=== PATIENT | male | born 1945 | race Caucasian/White ===

== ENCOUNTER → 2016-08-29 | Outpatient (CLI) | payer MEDICARE ==
--- NOTE | 2016-08-30 16:14 | XR ---
Right ankle HISTORY: Trauma and pain 3 views of the right ankle No comparisons Bone mineralization, joint spaces and alignment are maintained. There is a plantar calcaneal spur. Angela cency present along the proximal fifth metatarsal. Minimal displaced fracture is noted. IMPRESSION: Proximal fifth metatarsal fracture.
--- NOTE | 2016-08-30 16:15 | XR ---
Right foot HISTORY: Trauma and pain 3 views of the right foot Marked degenerative change present at the first metatarsophalangeal joint. Lucency through the proxim al fifth metatarsal is present in a stellate appearance with minimal displacement. No significant ang ulation. No dislocation. IMPRESSION: Proximal fifth metatarsal fracture
== END | disposition home or self-care (01) ==
LOC: RADXRYALE 09:02
PROVIDERS: ATTEND Internal Medicine
DX: S92.351A Displaced fracture of fifth metatarsal bone, right foot, initial encounter for closed fracture (principal); X58.XXXA Exposure to other specified factors, initial encounter

== ENCOUNTER → 2019-04-08 | Outpatient (CLI) | payer MEDICARE | END | disposition home or self-care (01) | LOC: CPPFTMAIN 11:31 | PROVIDERS: ATTEND Internal Medicine Cardiovascular Disease | DX: J44.9 Chronic obstructive pulmonary disease, unspecified (principal) | CPT/HCPCS: 94060; 94726; 94729 ==

== ENCOUNTER → 2019-05-07 | Outpatient (CLI) | payer MEDICARE ==
--- NOTE | 2019-05-07 15:32 | XR ---
EXAMINATION TYPE: XR chest 2V DATE OF EXAM: 05/07/2019 COMPARISON: Prior chest x-ray 12/25/2013 HISTORY: COPD, shortness of breath TECHNIQUE: Frontal and lateral views of the chest are obtained. FINDINGS: Lung volumes are stable, patient is rotated. There is no focal air space opacity, pleural e ffusion, or pneumothorax seen. The cardiac silhouette size is within normal limits. The osseous st ructures are intact. There is overlying artifact. IMPRESSION: No acute cardiopulmonary process.
== END | disposition home or self-care (01) ==
LOC: RADXRYALE 09:57
PROVIDERS: ATTEND Internal Medicine
DX: J44.9 Chronic obstructive pulmonary disease, unspecified (principal)
CPT/HCPCS: 71046

== ENCOUNTER 2019-11-11 02:18 | Observation (INO) | payer MEDICARE ==
[2019-11-11] MEDS ORDERED: SODIUM CHLORIDE 0.9% 500 ML 500 ML IV STA (02:53)
[2019-11-11] MEDS ORDERED: MORPHINE SULFATE 4 MG/ML SYRINGE IV STA (02:53)
[2019-11-11] MEDS ORDERED: ONDANSETRON 4 MG/2 ML VIAL IVP STA (02:53)
--- NOTE | 2019-11-11 02:55 | ED ---
General Adult HPI - General Chief complaint: Abdominal Pain Stated complaint: Abdominal Pain Time Seen by Provider: 11/11/19 02:38 Source: patient Mode of arrival: ambulatory Limitations: no limitations - History of Present Illness Initial comments: Dictation was produced using [employer] dictation software. please excuse any grammatical, word or spelling errors. Chief Complaint: 73-year-old male presents with abdominal pain. History of Present Illness: 73-year-old male who presents with acute abdominal pain. Patient locates the pain to his epigastric region. Patient states that he also feels nauseated. No fever, chills or night sweats. Denies any diarrhea. Patient denies the pain radiating to his back. Patient has no history of the surgery. No constitutional symptoms. Patient states his emesis is nonbilious not bloody. The ROS documented in this emergency department record has been reviewed and confirmed by me. Those systems with pertinent positive or negative responses have been documented in the HPI. All other systems are other negative and/or noncontributory. PHYSICAL EXAM: General Impression: Alert and oriented x3, acute distress secondary to pain HEENT: Normocephalic atraumatic, extra-ocular movements intact, pupils equal and reactive to light bilaterally, mucous membranes moist. Cardiovascular: Heart regular rate and rhythm, S1&S2 audible, no murmurs, rubs or gallops Chest: Lungs clear to auscultation bilaterally, no rhonchi, no wheeze, no rales Abdomen: Nondistended, nonrigid, tenderness to the epigastric area, no right upper quadrant tenderness, no pain at McBurney's point. No left lower quadrant abdominal pain. Musculoskeletal: Pulses present and equal in all extremities, no peripheral e joaquin Motor: no focal deficits noted Neurological: CN II-XII grossly intact, no focal motor or sensory deficits noted Skin: Intact with no visualized rashes Psych: Normal affect and mood ED course: 73-year-old male presents with acute abdominal pain. Vital signs upon arrival are within acceptable limits. Patient denies any lower extremity symptoms. No pulsatile abdominal mass. No concern for abdominal aortic aneurysm. Laboratory evaluation obtained. Mild leukocytosis of 14.2 unclear etiology. Sodium 135, potassium 3.3. Glucose 167. Abdominal labs unremarkable. No elevation in liver enzymes. Urinalysis is negative. CT of the abdomen and pelvis was obtained showing a large gallbladder with 1.7 cm gallstone at the gallbladder neck. Radiology was concerned that findings may suggest acute cholecystitis. Ultrasound of the gallbladder was obtained. Discussed patient case with general surgeon Dr. Hartmann who is willing to accept patients care. Patient started on ceftriaxone and Flagyl. Dr. Hartmann requested patient be nothing by mouth for potential surgical intervention. Patient reevaluated bedside and given more IV analgesia. He is agreeable with disposition. - Related Data Allergies Allergy/AdvReac Type Severity Reaction Status Date / Time Penicillins Allergy Unknown Verified 11/11/19 02:37 Childhood Review of Systems ROS Statement: Those systems with pertinent positive or pertinent negative responses have been documented in the HPI. ROS Other: All systems not noted in ROS Statement are negative. Past Medical History Past Medical History: Cancer, Hyperlipidemia, Hypertension, Prostate Disorder Additional Past Medical History / Comment(s): skin History of Any Multi-Drug Resistant Organisms: None Reported Past Surgical History: Hernia Repair Additional Past Surgical History / Comment(s): skin cancer right cheek Past Psychological History: No Psychological Hx Reported Smoking Status: Never smoker Past Alcohol Use History: Occasional Past Drug Use History: None Reported General Exam Limitations: no limitations Course Vital Signs 11/11/19 11/11/19 02:35 04:55 Temperature 97.4 F L Pulse Rate 80 77 Respiratory 22 16 Rate Blood Pressure 167/89 161/95 O2 Sat by Pulse 98 93 L Oximetry Medical Decision Making - Lab Data Result diagrams: 11/11/19 02:48 11/11/19 02:48 Lab Results 11/11/19 11/11/19 11/11/19 Range/Units 02:48 02:48 02:48 WBC 14.2 H (3.8-10.6) k/uL RBC 5.14 (4.30-5.90) m/uL Hgb 17.1 (13.0-17.5) gm/dL Hct 49.8 (39.0-53.0) % MCV 96.9 (80.0-100.0) fL MCH 33.3 (25.0-35.0) pg MCHC 34.4 (31.0-37.0) g/dL RDW 12.2 (11.5-15.5) % Plt Count 186 (150-450) k/uL Neutrophils % 83 % Lymphocytes % 9 % Monocytes % 6 % Eosinophils % 1 % Basophils % 0 % Neutrophils # 11.8 H (1.3-7.7) k/uL Lymphocytes # 1.2 (1.0-4.8) k/uL Monocytes # 0.8 (0-1.0) k/uL Eosinophils # 0.2 (0-0.7) k/uL Basophils # 0.1 (0-0.2) k/uL Sodium 135 L (137-145) mmol/L Potassium 3.3 L (3.5-5.1) mmol/L Chloride 98 (98-107) mmol/L Carbon Dioxide 25 (22-30) mmol/L Anion Gap 12 mmol/L BUN 13 (9-20) mg/dL Creatinine 1.04 (0.66-1.25) mg/dL Est GFR (CKD-EPI)AfAm 81 (>60 ml/min/1.73 sqM) Est GFR (CKD-EPI)NonAf 70 (>60 ml/min/1.73 sqM) Glucose 167 H (74-99) mg/dL Calcium 10.0 (8.4-10.2) mg/dL Total Bilirubin 1.2 (0.2-1.3) mg/dL AST 39 (17-59) U/L ALT 18 (4-49) U/L Alkaline Phosphatase 108 (38-126) U/L Total Protein 7.7 (6.3-8.2) g/dL Albumin 4.5 (3.5-5.0) g/dL Lipase 174 (23-300) U/L Urine Color Light Yellow Urine Appearance Cloudy (Clear) Urine pH 8.0 (5.0-8.0) Ur Specific [place] 1.012 (1.001-1.035) Urine Protein Negative (Negative) Urine Glucose (UA) Negative (Negative) Urine Ketones 1+ H (Negative) Urine Blood Negative (Negative) Urine Nitrite Negative (Negative) Urine Bilirubin Negative (Negative) Urine Urobilinogen <2.0 (<2.0) mg/dL Ur Leukocyte Esterase Negative (Negative) Urine RBC 5 (0-5) /hpf Urine WBC 4 (0-5) /hpf Ur Squamous Epith Cells <1 (0-4) /hpf Amorphous Sediment Rare H (None) /hpf Urine Bacteria Rare H (None) /hpf Urine Mucus Rare H (None) /hpf Disposition Clinical Impression: Acute cholecystitis Disposition: ADMITTED IP TO THIS HOSP Condition: Fair Referrals: Joselin Paulson MD [Primary Care Provider] - 1-2 days Decision Time: 05:53
[2019-11-11 03:00] LABS: Basophils # (A) 0.1 k/uL (0-0.2); Basophils % (A) 0 %; Eosinophils # (A) 0.2 k/uL (0-0.7); Eosinophils % (A) 1 %; HCT 49.8 % (39.0-53.0); HGB 17.1 gm/dL (13.0-17.5); Lymphocytes # (A) 1.2 k/uL (1.0-4.8); Lymphocytes % (A) 9 %; MCH 33.3 pg (25.0-35.0); MCHC 34.4 g/dL (31.0-37.0); MCV 96.9 fL (80.0-100.0); Mean Platelet Volume 7.1; Monocytes # (A) 0.8 k/uL (0-1.0); Monocytes % (A) 6 %; Neutrophils # (A) 11.8 k/uL (1.3-7.7); Neutrophils % (A) 83 %; Platelet Count 186 k/uL (150-450); RBC 5.14 m/uL (4.30-5.90); RDW 12.2 % (11.5-15.5); WBC 14.2 k/uL (3.8-10.6)
[2019-11-11 03:07] LABS: Amorphous Sediment,Urine Rare /hpf; Appearance,Urine Cloudy (Clear); Bacteria,Urine Rare /hpf; Bilirubin,Urine Negative (Negative); Blood,Urine Negative (Negative); Color,Urine Light Yellow; Glucose,Urine (UA) Negative (Negative); Ketones,Urine 1+ (Negative); Leukocyte Esterase,Urine Negative (Negative); Mucus,Urine Rare /hpf; Nitrite,Urine Negative (Negative); Protein,Urine Negative (Negative); RBC,Urine 5 /hpf (0-5); Specific Gravity,Urine 1.012 (1.001-1.035); Squamous Epithelial Cell,Urine <1 /hpf (0-4); Urobilinogen,Urine <2.0 mg/dL (<2.0); WBC,Urine 4 /hpf (0-5)
[2019-11-11 03:12] LABS: Albumin 4.5 g/dL (3.5-5.0); Potassium 3.3 mmol/L (3.5-5.1); Total Bilirubin 1.2 mg/dL (0.2-1.3); Total Protein 7.7 g/dL (6.3-8.2)
[2019-11-11] MEDS ORDERED: POTASSIUM CHLORIDE ER 20 MEQ TAB.ER PO STA (03:21)
--- NOTE | 2019-11-11 04:19 | CT ---
EXAMINATION TYPE: CT abdomen pelvis w con DATE OF EXAM: 11/11/2019 COMPARISON: None HISTORY: Abd Pain CT DLP: 2119.90 mGycm Automated exposure control for dose reduction was used. CONTRAST: Performed with IV Contrast, patient injected with 100 mL of Isovue 300. Multiple axial sections were obtained from the diaphragm to the floor the pelvis with IV contrast. There is mild subsegmental atelectasis right lung base. Heart size is normal. There is no pericardial effusion. There is no pleural effusion. There are 1.5 cm hypodensity rounded foci in the dependent s tomach that could be ingested medication. Stomach has normal size. Liver shows no focal defect. Gallb ladder is large with a 1.7 cm gallstone at the gallbladder neck. Gallbladder measures 12.2 x 5.1 cm. There is no gallbladder wall thickening. There is no pancreatic mass. Spleen is intact. There is no adrenal mass. Kidneys show satisfactory contrast opacification. There is no hydronephrosi s. There is 4.5 cm cortical cyst lower pole right kidney. There is no retroperitoneal adenopathy. The re are multiple diverticula in the sigmoid colon. I see no sign of diverticulitis. Ureters are not di lated. There is no retroperitoneal adenopathy. Bladder distends smoothly. There is no inguinal hernia . There are bilateral multiple inguinal lymph nodes that measure up to 1.5 cm. There is no free fluid in the pelvis. There is no mesenteric edema. There is no ascites or free air. There is no bowel obstruction. There i s spurring in the thoracic and lumbar spine. There is no compression fracture. Bony pelvis is intact. IMPRESSION: Dilated gallbladder with gallstone in the gallbladder neck. Cystic duct obstruction is suspected. The re is probably acute cholecystitis. Sigmoid diverticulosis without diverticulitis. Mild subsegmental atelectasis right lung base.
[2019-11-11] MEDS ORDERED: cefTRIAXone IN SWFI 1,000 MG/10 ML SYRINGE IVP STA (04:31)
[2019-11-11] MEDS ORDERED: metroNIDAZOLE-NS PMX 500 MG in SALINE 1 100ML.BAG IVPB STA (04:31)
[2019-11-11] MEDS ORDERED: HYDROmorphone 0.5 MG/0.5 ML SYRINGE IVP STA (04:59)
[2019-11-11] MEDS ORDERED: ACETAMINOPHEN TAB 325 MG TAB PO PRN (05:47)
[2019-11-11] MEDS ORDERED: NALOXONE 0.4 MG/ML 1 ML VIAL IV PRN (05:47)
--- NOTE | 2019-11-11 05:57 | US ---
EXAM: US Abdomen Limited, Right Upper Quadrant CLINICAL HISTORY: RUQ pain TECHNIQUE: Real-time ultrasound of the right upper quadrant with image documentation. COMPARISON: No relevant prior studies available. FINDINGS: Liver: Evidence of hepatic steatosis. No intrahepatic bile duct dilation. Gallbladder: 15 mm stone in neck of gallbladder. Very distended gallbladder. No gallbladder wall thickening. Common bile duct: Common bile duct not seen, obscured by gas. Pancreas: Unremarkable as visualized. Right kidney: Unremarkable. No stones. No solid mass. No hydronephrosis. Free fluid: No abnormal fluid. IMPRESSION: Distended gallbladder with stone in neck of gallbladder. No gallbladder wall thickening or abnormal fluid. Hepatic steatosis.
[2019-11-11] MEDS: SODIUM CHLORIDE 0.9% 1,000 ML IV SCH ×3 (08:26→19:54)
[2019-11-11] MEDS: LEVOFLOXACIN 500MG-D5W PMX 500 MG in DEXTROSE/WATER 1 100ML.BAG IVPB SCH (08:26)
--- NOTE | 2019-11-11 09:09 | P.GSHP ---
History of Present Illness H&P Date: 11/11/19 CHIEF COMPLAINT: Abdominal pain HISTORY OF PRESENT ILLNESS: 73-year-old male who presented to the emergency room with a chief complaint of abdominal pain. Patient reports pain is located in epigastric region. He states the pain began last night shortly after eating dinner which he ate eggs and toast. He reports nausea and vomiting overnight but states it has resolved this morning. Denies fever or chills. Denies diarrhea or consultation. PAST MEDICAL HISTORY: See list. PAST SURGICAL HISTORY: See list. SOCIAL HISTORY: No illicit drug use. REVIEW OF SYSTEMS: CONSTITUTIONAL: Denies fever or chills. HEENT: Denies blurred vision, vision changes, or eye pain. Denies hemoptysis CARDIOVASCULAR: Denies chest pain or pressure. RESPIRATORY: No shortness of breath. GASTROINTESTINAL: Refer to HPI for pertinent findings HEMATOLOGIC: Denies bleeding disorders. GENITOURINARY: Denies any blood in urine. SKIN: Denies pruitis. Denies rash. PHYSICAL EXAM: VITAL SIGNS: Reviewed. GENERAL: Well-developed in no acute distress. HEENT: No sclera icterus. Extraocular movements grossly intact. Moist buccal mucosa. Head is atraumatic, normocephalic. ABDOMEN: Soft. Obese. Nondistended. Nontender. NEUROLOGIC: Alert and oriented. Cranial nerves II through XII grossly intact. LABORATORY DATA: WBC 14.2. Hemoglobin 17.1. Platelet count 186. IMAGING: -Gallbladder ultrasound: Distended gallbladder with stone in the neck of the gallbladder. No gallbladder wall thickening or abnormal fluid. -CT abdomen and pelvis: Dilated gallbladder with gallstone in the gallbladder neck. Cystic duct obstruction is suspected. There is probably acute cholecystitis. ASSESSMENT: 1. Abdominal pain 2. Acute cholecystitis 3. Cholelithiasis PLAN: NPO. IV fluids. IV antibiotics. Monitor WBC. Consult Dr. Ospina for medical man agement. Patient to undergo laparoscopic cholecystectomy today with Dr. Hartmann Nurse practitioner note has been reviewed by physician. Signing provider agrees with the documented findings, assessment, and plan of care. Past Medical History Past Medical History: Cancer, Hyperlipidemia, Hypertension, Prostate Disorder Additional Past Medical History / Comment(s): skin History of Any Multi-Drug Resistant Organisms: None Reported Past Surgical History: Hernia Repair Additional Past Surgical History / Comment(s): skin cancer right cheek Past Psychological History: No Psychological Hx Reported Smoking Status: Never smoker Past Alcohol Use History: Occasional Past Drug Use History: None Reported Medications and Allergies Allergies Allergy/AdvReac Type Severity Reaction Status Date / Time Penicillins Allergy Unknown Verified 11/11/19 02:37 Childhood Surgical - Exam Vital Signs Temp Pulse Resp BP Pulse Ox 97.4 F L 80 22 167/89 98 11/11/19 02:35 11/11/19 02:35 11/11/19 02:35 11/11/19 02:35 11/11/19 02:35 Results - Labs 11/11/19 02:48 11/11/19 02:48 Abnormal Lab Results - Last 24 Hours (Table) 11/11/19 11/11/19 11/11/19 Range/Units 02:48 02:48 02:48 WBC 14.2 H (3.8-10.6) k/uL Neutrophils # 11.8 H (1.3-7.7) k/uL Sodium 135 L (137-145) mmol/L Potassium 3.3 L (3.5-5.1) mmol/L Glucose 167 H (74-99) mg/dL Urine Ketones 1+ H (Negative) Amorphous Sediment Rare H (None) /hpf Urine Bacteria Rare H (None) /hpf Urine Mucus Rare H (None) /hpf Diabetes panel 11/11/19 Range/Units 02:48 Sodium 135 L (137-145) mmol/L Potassium 3.3 L (3.5-5.1) mmol/L Chloride 98 (98-107) mmol/L Carbon Dioxide 25 (22-30) mmol/L BUN 13 (9-20) mg/dL Creatinine 1.04 (0.66-1.25) mg/dL Glucose 167 H (74-99) mg/dL Calcium 10.0 (8.4-10.2) mg/dL AST 39 (17-59) U/L ALT 18 (4-49) U/L Alkaline Phosphatase 108 (38-126) U/L Total Protein 7.7 (6.3-8.2) g/dL Albumin 4.5 (3.5-5.0) g/dL Calcium panel 11/11/19 Range/Units 02:48 Calcium 10.0 (8.4-10.2) mg/dL Albumin 4.5 (3.5-5.0) g/dL Pituitary panel 11/11/19 Range/Units 02:48 Sodium 135 L (137-145) mmol/L Potassium 3.3 L (3.5-5.1) mmol/L Chloride 98 (98-107) mmol/L Carbon Dioxide 25 (22-30) mmol/L BUN 13 (9-20) mg/dL Creatinine 1.04 (0.66-1.25) mg/dL Glucose 167 H (74-99) mg/dL Calcium 10.0 (8.4-10.2) mg/dL Adrenal panel 11/11/19 Range/Units 02:48 Sodium 135 L (137-145) mmol/L Potassium 3.3 L (3.5-5.1) mmol/L Chloride 98 (98-107) mmol/L Carbon Dioxide 25 (22-30) mmol/L BUN 13 (9-20) mg/dL Creatinine 1.04 (0.66-1.25) mg/dL Glucose 167 H (74-99) mg/dL Calcium 10.0 (8.4-10.2) mg/dL Total Bilirubin 1.2 (0.2-1.3) mg/dL AST 39 (17-59) U/L ALT 18 (4-49) U/L Alkaline Phosphatase 108 (38-126) U/L Total Protein 7.7 (6.3-8.2) g/dL Albumin 4.5 (3.5-5.0) g/dL
[2019-11-11] MEDS: PANTOPRAZOLE 40 MG/10 ML VIAL IVP SCH (09:32)
[2019-11-11] MEDS: HYDROmorphone 0.5 MG/0.5 ML SYRINGE IVP PRN ×3 (12:40→20:24)
[2019-11-11] MEDS: HEPARIN SODIUM,PORCINE 5,000 UNIT/ML 1 ML VIAL SQ SCH ×2 (13:33→19:44)
[2019-11-11 19:49] LABS: Glucose,Whole Blood 182 mg/dL (75-99)
[2019-11-12] MEDS: HYDROmorphone 0.5 MG/0.5 ML SYRINGE IVP PRN ×4 (00:39→18:55)
[2019-11-12] MEDS: SODIUM CHLORIDE 0.9% 1,000 ML IV SCH ×2 (00:41→14:38)
[2019-11-12] MEDS ORDERED: IPRATROPIUM-ALBUTEROL 3 ML NEB INHALATION PRN (00:49)
--- NOTE | 2019-11-12 00:51 | P.CONS ---
History of Present Illness - Reason for Consult Consult date: 11/11/19 Medical management - Chief Complaint Abdominal pain - History of Present Illness Patient is a 73-year-old male with a known history of COPD, hypertension, hyperlipidemia, GERD, history of skin cancers removed, BPH and nephrolithiasis and also chronic low back pain presents to ER with complaints of abdominal pain mainly in the epigastric and right upper quadrant region. Pain started last night and has been having nausea and episodes of vomiting at home. Due to worsening pain patient presents to ER. Denied any fever or chills. breasts of chest pain or shortness of breath. no headache or dizziness or lightheadedness. denied any unusual food intake. ct of the abdominal pelvis showed dilated gallbladder and gallstone in the gallbladder neck. there is probable acute cystitis. ABDOMEN SHOWED DISTENDED GALLBLADDER WITH STONE IN THE NECK OF THE GALLBLADDER. NO GALLBLADDER WALL THICKENING OR ABNORMAL FLUID. WBC 14.2. Potassium 3.3. Review of Systems Constitutional: Patient denies any fever or chills . No generalized weakness or weight loss. Abdomen: Patient did have nausea and vomiting.. Abdominal pain. Cardiovascular: Patient denies any chest pain or short of breath no palpitations. Respiratory: patient denied any cough is from production. No shortness of breath Neurologic: Patient denied any numbness or tingling headache. Musculoskeletal: Patient denies any complaints of joint swelling or deformity. Skin: Negative Psychiatric: Negative Endocrine: No heat or cold intolerance. No recent weight gain. Genitourinary: No dysuria or hematuria. All other 14 point ROS negative except the above Past Medical History Past Medical History: Cancer, COPD, GERD/Reflux, Hyperlipidemia, Hypertension, Prostate Disorder, Renal Disease Additional Past Medical History / Comment(s): Skin cancer removed from R cheek recently, BPH, nephritis, nephrolithiasis, chronic low back pain, gastric ulcer when in his 20s, L ear cerumen build up. History of Any Multi-Drug Resistant Organisms: None Reported Past Surgical History: Heart Catheterization, Hernia Repair Additional Past Surgical History / Comment(s): skin cancer removal right cheek, bilateral inguinal hernia repairs, colonoscopy, Past Anesthesia/Blood Transfusion Reactions: No Reported Reaction Smoking Status: Former smoker - Past Family History Father Family Medical History: Coronary Artery Disease (CAD) Additional Family Medical History / Comment(s): Father had CABG at the age of 68yrs. Mother Family Medical History: Congestive Heart Failure (CHF), CVA/TIA Medications and Allergies Home Medications Medication Instructions Recorded Confirmed Type Albuterol Sulfate [Ventolin HFA] 2 puff INHALATION RT-Q6H PRN 11/11/19 11/11/19 History Aspirin 81 mg PO DAILY 11/11/19 11/11/19 History Budesonide-Formot 160-4.5 Mcg 2 puff INHALATION RT-BID 11/11/19 11/11/19 History [Symbicort 160-4.5 Mcg Inhaler] Lisinopril [Zestril] 10 mg PO HS 11/11/19 11/11/19 History Lisinopril-Hctz 20-25 mg 1 tab PO DAILY 11/11/19 11/11/19 History [Zestoretic 20-25] Metoprolol Tartrate [Lopressor] 25 mg PO BID 11/11/19 11/11/19 History Simvastatin [Zocor] 40 mg PO HS 11/11/19 11/11/19 History Tamsulosin HCl [Flomax] 0.4 mg PO DAILY 11/11/19 11/11/19 History Allergies Allergy/AdvReac Type Severity Reaction Status Date / Time Penicillins Allergy Unknown Verified 11/11/19 09:20 Childhood Physical Exam Vitals: Vital Signs Temp Pulse Resp BP Pulse Ox 11/11/19 08:01 98.6 F 85 17 142/90 98 11/11/19 04:55 77 16 161/95 93 L 11/11/19 02:35 97.4 F L 80 22 167/89 98 Intake and Output 11/10/19 11/11/19 11/11/19 22:59 06:59 14:59 Other: Weight 115.666 kg 115.666 kg PHYSICAL EXAMINATION: Patient is lying in the bed comfortably, no acute distress, awake alert and oriented.. HEENT: Normocephalic. Neck is supple. Pupils reactive. Nostrils clear. Oral cavity is moist. Ears reveal no drainage. Neck reveals no JVD, carotid bruits, or thyromegaly. CHEST EXAMINATION: Trachea is central. Symmetrical expansion. Lung interiano clear to auscultation and percussion. CARDIAC: Normal S1, S2 with no gallops. No murmurs ABDOMEN: Soft. Right upper quadrant tenderness. Bowel sounds normal. No organomegaly. No abdominal bruits. Extremities: reveal no edema. No clubbing or cyanosis Neurologically awake, alert, oriented x3 with well-coordinated movements. No focal deficits noted Skin: No rash or skin lesions. Psychiatric: Coperative. Nonsuicidal Musculoskeletal: No joint swelling or deformity. Normal range of motion. Results CBC & Chem 7: 11/11/19 02:48 11/11/19 02:48 Labs: Abnormal Lab Results - Last 24 Hours (Table) 11/11/19 11/11/19 11/11/19 Range/Units 02:48 02:48 02:48 WBC 14.2 H (3.8-10.6) k/uL Neutrophils # 11.8 H (1.3-7.7) k/uL Sodium 135 L (137-145) mmol/L Potassium 3.3 L (3.5-5.1) mmol/L Glucose 167 H (74-99) mg/dL Urine Ketones 1+ H (Negative) Amorphous Sediment Rare H (None) /hpf Urine Bacteria Rare H (None) /hpf Urine Mucus Rare H (None) /hpf Assessment and Plan Assessment: Acute cholecystitis with the gallstone and the neck of the gallbladder. Mild leukocytosis Hypertension uncontrolled Hyperlipidemia COPD not in exacerbation GERD BPH History of nephrolithiasis Chronic back pain History of skin cancer removal. DVT prophylaxis with heparin subcu Previous history of smoking Plan: Patient will be continued on IV hydration and pain medications and empiric antibiotics. Patient was given a dose of ceftriaxone and Flagyl in the ER. Continue with current empiric antibiotics. Gen. surgery is planning for cholecystectomy tomorrow. Patient does not have any active symptoms of chest pain or shortness breath. Continue with duo nebs and Symbicort. Continue with home blood pressure medications in the form of lisinopril and metoprolol. We will follow up labs tomorrow. Patient is at low risk for abdominal surgery. We will continue to follow closely and further recommendations based on the clinical course. Time with Patient: Greater than 30
[2019-11-12] MEDS: LISINOPRIL 10 MG TAB PO SCH ×2 (01:07→20:25)
[2019-11-12 08:04] LABS: Basophils % (A) 0 %; Eosinophils # (A) 0.1 k/uL (0-0.7); Eosinophils % (A) 0 %; HGB 15.8 gm/dL (13.0-17.5); Lymphocytes # (A) 1.2 k/uL (1.0-4.8); Lymphocytes % (A) 6 %; MCH 33.5 pg (25.0-35.0); MCHC 33.7 g/dL (31.0-37.0); MCV 99.5 fL (80.0-100.0); Monocytes # (A) 1.3 k/uL (0-1.0); Monocytes % (A) 7 %; Neutrophils # (A) 15.8 k/uL (1.3-7.7); Neutrophils % (A) 85 %; Platelet Count 147 k/uL (150-450); RBC 4.72 m/uL (4.30-5.90); RDW 12.4 % (11.5-15.5); WBC 18.7 k/uL (3.8-10.6)
[2019-11-12] MEDS: HEPARIN SODIUM,PORCINE 5,000 UNIT/ML 1 ML VIAL SQ SCH ×3 (08:14→20:24)
[2019-11-12 08:24] LABS: ALT 13 U/L (4-49); AST 26 U/L (17-59); African American GFR (CKD) >90 (>60 ml/min/1.73 sqM); Albumin 3.4 g/dL (3.5-5.0); Alkaline Phosphatase 70 U/L (38-126); Anion Gap 7 mmol/L; Blood Urea Nitrogen 9 mg/dL (9-20); Calcium 8.6 mg/dL (8.4-10.2); Carbon Dioxide 27 mmol/L (22-30); Chloride 100 mmol/L (98-107); Glucose 125 mg/dL (74-99); Non-African American GFR(CKD) 79 (>60 ml/min/1.73 sqM); Potassium 3.8 mmol/L (3.5-5.1); Sodium 134 mmol/L (137-145); Total Bilirubin 1.4 mg/dL (0.2-1.3); Total Protein 6.4 g/dL (6.3-8.2)
[2019-11-12] MEDS: METOPROLOL TARTRATE 25 MG TAB PO SCH ×2 (08:25→20:25)
[2019-11-12] MEDS: PANTOPRAZOLE 40 MG/10 ML VIAL IVP SCH (08:25)
[2019-11-12] MEDS ORDERED: IV FLUID CONTINUATION 100 ML IV ONE (08:57)
[2019-11-12] MEDS ORDERED: fentaNYL (PF) 50 MCG/ML 2 ML AMP IV ONE ×2 (09:10→09:25)
[2019-11-12] MEDS: ONDANSETRON 4 MG/2 ML VIAL IVP PRN ×3 (09:13→12:09)
[2019-11-12] MEDS ORDERED: DEXAMETHASONE SOD PHOSPHATE 10 MG/ML 1 ML VIAL IV ONE (09:15)
[2019-11-12] MEDS ORDERED: LACTATED RINGERS 1,000 ML IV ONE (09:22)
[2019-11-12] MEDS: SYMBICORT 160-4.5 MCG INHALER INHALATION SCH ×2 (09:22→21:37)
[2019-11-12] MEDS: LEVOFLOXACIN 500MG-D5W PMX 500 MG in DEXTROSE/WATER 1 100ML.BAG IVPB SCH (09:57)
[2019-11-12] MEDS: TAMSULOSIN 0.4 MG CAP.ER.24H PO SCH (10:04)
[2019-11-12] MEDS ORDERED: LABETALOL 5 MG/ML VIAL MDV ONE (10:57)
[2019-11-12] MEDS ORDERED: KETOROLAC 30 MG/ML 1 ML VIAL ONE (10:57)
[2019-11-12] MEDS ORDERED: SUCCINYLCHOLINE CHLORIDE 100 MG/5 ML SYR IV ONE (10:57)
[2019-11-12] MEDS ORDERED: GLYCOPYRROLATE 0.2 MG/ML 2 ML VIAL ONE (10:57)
[2019-11-12] MEDS ORDERED: fentaNYL (PF) 50 MCG/ML 2 ML AMP ONE (10:57)
[2019-11-12] MEDS ORDERED: NEOSTIGMINE 1 MG/ML 10 ML VIAL ONE (10:57)
[2019-11-12] MEDS ORDERED: LIDOCAINE 1% INJ 10MG/ML (20 ML MDV) ONE (10:57)
[2019-11-12] MEDS ORDERED: PROPOFOL 10 MG/ML 20 ML VIAL IV ONE (10:57)
[2019-11-12] MEDS ORDERED: ROCURONIUM BROMIDE 10 MG/ML 5 ML VIAL IV ONE (10:57)
[2019-11-12] MEDS ORDERED: BUPIVACAIN-EPI 0.25%-1:200,000 30 ML VIAL SQ ONE (11:16)
--- NOTE | 2019-11-12 11:42 | P.OP ---
Date of Procedure: 11/12/19 Preoperative Diagnosis: Cholecystitis Postoperative Diagnosis: Gangrenous cholecystitis Procedure(s) Performed: Laparoscopic cholecystectomy Anesthesia: RETA Surgeon: Magdaleno Hartmann Estimated Blood Loss (ml): 10 Pathology: other (Gallbladder) Condition: stable Disposition: PACU Description of Procedure: The patient was placed on the operating table. The patient received a general endotracheal tube anesthesia. The patients abdomen was prepped and draped in the usual sterile fashion. Through an infraumbilical stab incision, the fascia of the anterior abdominal wall was grasped with a pair of Kochers and then the Veress needle was placed in the peritoneal cavity. Position of the Veress needle was confirmed with positive drop test. The abdomen was then insufflated. After adequate insufflation, the 10 mm trocar was placed in the peritoneal cavity. Following this the laparoscope was placed in the peritoneal cavity. The patient was placed in the head-up, right side up position and then a 5 mm trocar was placed in the right lateral and right subcostal position under direct visualization. A 8 mm trocar was placed in the epigastric position. The gallbladder appeared to have patchy necrosis. The gallbladder was grasped in the fundus and infundibulum. Traction on the gallbladder was placed in the lateral and the cephalad positions. The triangle of [place] was visualized.. The cystic duct was bluntly dissected until the union of the cystic duct and common bile duct was seen. A critical view of safety was achieved. The cystic duct was then divided and sealed with the Harmonic scissors. A PDS Endoloop was then placed throughout the cystic duct stump. The cystic artery divided and sealed with the Harmonic scissors. The gallbladder was then removed from the liver bed using Harmonic scissors. The gallbladder was then extracted through the epigastric port site. Operative field was checked for any bleeding spots and Harmonic scissors was used to coagulate the liver bed. The abdomen was irrigated. The trocars were medhat hilda. The skin was closed using interrupted 3-0 Vicryl suture. Dermabond dressing were applied. The patient tolerated the procedure well.
[2019-11-12] MEDS: metroNIDAZOLE-NS PMX 500 MG in SALINE 1 100ML.BAG IVPB SCH ×2 (14:37→20:55)
[2019-11-12] MEDS ORDERED: ATORVASTATIN 20 MG TAB PO SCH (21:00)
--- NOTE | 2019-11-13 00:18 | P.PN ---
Subjective Progress Note Date: 11/12/19 Principal diagnosis: Acute cholecystitis status post cholecystectomy Patient is a 73-year-old male with a known history of COPD, hypertension, hyperlipidemia, GERD, history of skin cancers removed, BPH and nephrolithiasis and also chronic low back pain presents to ER with complaints of abdominal pain mainly in the epigastric and right upper quadrant region. Pain started last night and has been having nausea and episodes of vomiting at home. Due to worsening pain patient presents to ER. Denied any fever or chills. breasts of chest pain or shortness of breath. no headache or dizziness or lightheadedness. denied any unusual food intake. ct of the abdominal pelvis showed dilated gallbladder and gallstone in the gallbladder neck. there is probable acute cystitis. ABDOMEN SHOWED DISTENDED GALLBLADDER WITH STONE IN THE NECK OF THE GALLBLADDER. NO GALLBLADDER WALL THICKENING OR ABNORMAL FLUID. WBC 14.2. Potassium 3.3. 11/12/2019 Patient is status post cholecystectomy due to gangrenous acute cholecystitis today. Currently pain is controlled. No complaints of nausea vomiting or diarrhea. No chest pain or shortness breath. Patient will be continued on incentive spirometry. Afebrile now. Patient did have elevated WBC count to 18.7, will be continued on antibiotics in the form of Levaquin, added Flagyl. Current medications reviewed. Objective - Vital Signs Vital signs: Vital Signs Temp 98.1 F 11/12/19 21:00 Pulse 78 11/12/19 21:00 Resp 17 11/12/19 12:50 BP 145/79 11/12/19 21:00 Pulse Ox 93 L 11/12/19 21:00 Intake & Output 11/12/19 11/12/19 11/13/19 06:59 18:59 06:59 Intake Total 360 800 Output Total 5 Balance 360 795 Intake: IV 700 Intake, IV Titration 360 100 Amount Sodium Chloride 0.9% 1, 360 000 ml @ 120 mls/hr IV . Q8H20M [facility] Rx#:[id number] metroNIDAZOLE-NS PMX 500 100 mg In Saline 1 100ml.bag @ 100 mls/hr IVPB Q8H [facility] Rx#:[id number] Output: Estimated Blood Loss 5 Other: Voiding Method Toilet Toilet Toilet # Voids 1 - Exam PHYSICAL EXAMINATION: Patient is lying in the bed comfortably, no acute distress, awake alert and oriented.. HEENT: Normocephalic. Neck is supple. Pupils reactive. Nostrils clear. Oral cavity is moist. Ears reveal no drainage. Neck reveals no JVD, carotid bruits, or thyromegaly. CHEST EXAMINATION: Trachea is central. Symmetrical expansion. Lung interiano clear to auscultation and percussion. CARDIAC: Normal S1, S2 with no gallops. No murmurs ABDOMEN: Soft. Mild tenderness at the surgical site. Bowel sounds present. No organomegaly. No abdominal bruits. Extremities: reveal no edema. No clubbing or cyanosis Neurologically awake, alert, oriented x3 with well-coordinated movements. No focal deficits noted Skin: No rash or skin lesions. Psychiatric: Coperative. Nonsuicidal Musculoskeletal: No joint swelling or deformity. Normal range of motion. - Labs CBC & Chem 7: 11/12/19 07:24 11/12/19 07:24 Labs: Abnormal Lab Results - Last 24 Hours (Table) 11/12/19 11/12/19 Range/Units 07:24 07:24 WBC 18.7 H (3.8-10.6) k/uL Plt Count 147 L (150-450) k/uL Neutrophils # 15.8 H (1.3-7.7) k/uL Monocytes # 1.3 H (0-1.0) k/uL Sodium 134 L (137-145) mmol/L Glucose 125 H (74-99) mg/dL Total Bilirubin 1.4 H (0.2-1.3) mg/dL Albumin 3.4 L (3.5-5.0) g/dL Assessment and Plan Assessment: Acute gangrenous cholecystitis with the gallstone and the neck of the gallbladder. Status post cholecystectomy postoperative day 0 leukocytosis secondary to above. Hypertension uncontrolled Hyperlipidemia COPD not in exacerbation GERD BPH History of nephrolithiasis Chronic back pain History of skin cancer removal. DVT prophylaxis with heparin subcu Previous history of smoking Plan: Patient will be continued on IV hydration and pain medications and empiric antibiotics. Patient was given a dose of ceftriaxone and Flagyl in the ER. Continue with current empiric antibiotics on Levaquin and Flagyl. Patient is status post cholecystectomy. Continue with duo nebs and Symbicort. Continue with home blood pressure medications in the form of lisinopril and metoprolol. We will follow up labs tomorrow. We will continue to follow closely and further recommendations based on the clinical course. Time with Patient: Greater than 30
[2019-11-13] MEDS: metroNIDAZOLE-NS PMX 500 MG in SALINE 1 100ML.BAG IVPB SCH ×2 (04:58→08:45)
[2019-11-13] MEDS: SODIUM CHLORIDE 0.9% 1,000 ML IV SCH (04:59)
[2019-11-13] MEDS: HYDROmorphone 0.5 MG/0.5 ML SYRINGE IVP PRN (05:04)
[2019-11-13 06:29] VITALS: BP 158/72; PULSE 71; RESP 18; TEMP 97
[2019-11-13 08:22] LABS: Basophils % (A) 0 %; Eosinophils % (A) 0 %; HCT 41.7 % (39.0-53.0); HGB 14.1 gm/dL (13.0-17.5); Lymphocytes # (A) 1.5 k/uL (1.0-4.8); Lymphocytes % (A) 13 %; MCH 33.9 pg (25.0-35.0); MCHC 33.8 g/dL (31.0-37.0); MCV 100.1 fL (80.0-100.0); Mean Platelet Volume 7.4; Monocytes # (A) 0.5 k/uL (0-1.0); Monocytes % (A) 4 %; Neutrophils # (A) 9.3 k/uL (1.3-7.7); Neutrophils % (A) 80 %; Platelet Count 146 k/uL (150-450); RBC 4.16 m/uL (4.30-5.90); RDW 12.6 % (11.5-15.5); WBC 11.6 k/uL (3.8-10.6)
[2019-11-13 08:37] LABS: Calcium 8.4 mg/dL (8.4-10.2); Potassium 3.6 mmol/L (3.5-5.1)
[2019-11-13] MEDS: METOPROLOL TARTRATE 25 MG TAB PO SCH (08:45)
[2019-11-13] MEDS: HEPARIN SODIUM,PORCINE 5,000 UNIT/ML 1 ML VIAL SQ SCH (08:46)
[2019-11-13] MEDS: PANTOPRAZOLE 40 MG/10 ML VIAL IVP SCH (08:46)
[2019-11-13] MEDS: TAMSULOSIN 0.4 MG CAP.ER.24H PO SCH (08:46)
[2019-11-13] MEDS: SYMBICORT 160-4.5 MCG INHALER INHALATION SCH (08:55)
--- NOTE | 2019-11-13 10:19 | P.DS ---
Providers Date of admission: 11/11/19 05:47 Expected date of discharge: 11/13/19 Attending physician: Magdaleno Hartmann Consults: 11/11/19 08:03 Consult Physician Routine Consulting Provider: Ramona Ospina Consult Reason/Comments: medical management Do you want consulting provider notified?: Yes Primary care physician: Joselin Paulson Hospital Course: 73-year-old male who presented to the emergency room with a chief complaint of abdominal pain. Patient was found to have gangrenous cholecystitis. He underwent laparoscopic cholecystectomy with Dr. Hartmann. Patient is doing well postoperatively without any complications. He is tolerating diet without nausea or vomiting. Pain is controlled on oral medications. Vital signs are stable. He is stable for discharge home today on oral antibiotics. Please see EMR for further hospital course details. Discharge Diagnosis: 1. Abdominal pain 2. Acute cholecystitis 3. Cholelithiasis Nurse practitioner note has been reviewed by physician. Signing provider agrees with the documented findings, assessment, and plan of care. Patient Condition at Discharge: Stable Plan - Discharge Summary Discharge Rx Participant: No New Discharge Prescriptions: New Hydrocodone/Acetaminophen [[place] 5-325] 1 tab PO Q6HR PRN #10 tab PRN Reason: Pain No Action Tamsulosin HCl [Flomax] 0.4 mg PO DAILY Lisinopril [Zestril] 10 mg PO HS Metoprolol Tartrate [Lopressor] 25 mg PO BID Budesonide-Formot 160-4.5 Mcg [Symbicort 160-4.5 Mcg Inhaler] 2 puff INHALATION RT-BID Albuterol Sulfate [Ventolin HFA] 2 puff INHALATION RT-Q6H PRN PRN Reason: Shortness Of Breath Simvastatin [Zocor] 40 mg PO HS Lisinopril-Hctz 20-25 mg [Zestoretic 20-25] 1 tab PO DAILY Aspirin 81 mg PO DAILY Discharge Medication List Albuterol Sulfate [Ventolin HFA] 2 puff INHALATION RT-Q6H PRN 11/11/19 [History] Aspirin 81 mg PO DAILY 11/11/19 [History] Budesonide-Formot 160-4.5 Mcg [Symbicort 160-4.5 Mcg Inhaler] 2 puff INHALATION RT-BID 11/11/19 [History] Lisinopril [Zestril] 10 mg PO HS 11/11/19 [History] Lisinopril-Hctz 20-25 mg [Zestoretic 20-25] 1 tab PO DAILY 11/11/19 [History] Metoprolol Tartrate [Lopressor] 25 mg PO BID 11/11/19 [History] Simvastatin [Zocor] 40 mg PO HS 11/11/19 [History] Tamsulosin HCl [Flomax] 0.4 mg PO DAILY 11/11/19 [History] Hydrocodone/Acetaminophen [[place] 5-325] 1 tab PO Q6HR PRN #10 tab 11/12/19 [Rx] Follow up Appointment(s)/Referral(s): Joselin Paulson MD [Primary Care Provider] - 1-2 days Magdaleno Hartmann MD [STAFF PHYSICIAN] - 1 Week Activity/Diet/Wound Care/Special Instructions: No driving while taking [place] No lifting over 10 pounds You may shower. No soaking or tub baths Very light activity until you are reevaluated at your follow up appointment with your surgeon
[2019-11-13] MEDS: LEVOFLOXACIN 500MG-D5W PMX 500 MG in DEXTROSE/WATER 1 100ML.BAG IVPB SCH (10:58)
--- NOTE | 2019-11-13 13:14 | P.PN ---
Subjective Progress Note Date: 11/13/19 Principal diagnosis: Acute cholecystitis status post cholecystectomy Patient is a 73-year-old male with a known history of COPD, hypertension, hyperlipidemia, GERD, history of skin cancers removed, BPH and nephrolithiasis and also chronic low back pain presents to ER with complaints of abdominal pain mainly in the epigastric and right upper quadrant region. Pain started last night and has been having nausea and episodes of vomiting at home. Due to worsening pain patient presents to ER. Denied any fever or chills. breasts of chest pain or shortness of breath. no headache or dizziness or lightheadedness. denied any unusual food intake. ct of the abdominal pelvis showed dilated gallbladder and gallstone in the gallbladder neck. there is probable acute cystitis. ABDOMEN SHOWED DISTENDED GALLBLADDER WITH STONE IN THE NECK OF THE GALLBLADDER. NO GALLBLADDER WALL THICKENING OR ABNORMAL FLUID. WBC 14.2. Potassium 3.3. 11/12/2019 Patient is status post cholecystectomy due to gangrenous acute cholecystitis today. Currently pain is controlled. No complaints of nausea vomiting or diarrhea. No chest pain or shortness breath. Patient will be continued on incentive spirometry. Afebrile now. Patient did have elevated WBC count to 18.7, will be continued on antibiotics in the form of Levaquin, added Flagyl. 11/13/2019 Age and is seen and evaluated and follow-up status post cholecystectomy yesterday. Patient remained on IV antibiotics in the form of Levaquin and Flagyl and will continue with oral in the outpatient setting. Patient continues to have some mild abdominal discomfort although feels much better and states he would like to go home today. Discussed with the patient at length about continuing the use incentive spirometer at least 10 times every hour while awake. Currently no reports of shortness of breath, chest pain, or palpitations. Patient is afebrile. White blood count slowly trending down and is currently 11.6. Sodium is slightly improved and is 136. Objective - Vital Signs Vital signs: Vital Signs Temp 97 F L 11/13/19 06:29 Pulse 71 11/13/19 06:29 Resp 18 11/13/19 06:29 BP 158/72 11/13/19 06:29 Pulse Ox 92 L 11/13/19 06:29 Intake & Output 11/12/19 11/13/19 11/13/19 18:59 06:59 18:59 Intake Total 800 Output Total 5 Balance 795 Intake: IV 700 Intake, IV Titration 100 Amount metroNIDAZOLE-NS PMX 500 100 mg In Saline 1 100ml.bag @ 100 mls/hr IVPB Q8H [facility] Rx#:[id number] Output: Estimated Blood Loss 5 Other: Voiding Method Toilet Toilet Toilet # Voids 2 - Exam Patient is lying in the bed comfortably, no acute distress, awake alert and oriented.. HEENT: Normocephalic. Neck is supple. Pupils reactive. Nostrils clear. Oral cavity is moist. Ears reveal no drainage. Neck reveals no JVD, carotid bruits, or thyromegaly. CHEST EXAMINATION: Trachea is central. Symmetrical expansion. Lung interiano clear to auscultation and percussion. CARDIAC: Normal S1, S2 with no gallops. No murmurs ABDOMEN: Soft. Mild tenderness at the surgical site. Bowel sounds present. No organomegaly. No abdominal bruits. Extremities: reveal no edema. No clubbing or cyanosis Neurologically awake, alert, oriented x3 with well-coordinated movements. No focal deficits noted Skin: No rash or skin lesions. Psychiatric: Cooperative. Non-suicidal Musculoskeletal: No joint swelling or deformity. Normal range of motion. - Labs CBC & Chem 7: 11/13/19 07:59 11/13/19 07:59 Labs: Abnormal Lab Results - Last 24 Hours (Table) 11/13/19 11/13/19 Range/Units 07:59 07:59 WBC 11.6 H (3.8-10.6) k/uL RBC 4.16 L (4.30-5.90) m/uL MCV 100.1 H (80.0-100.0) fL Plt Count 146 L (150-450) k/uL Neutrophils # 9.3 H (1.3-7.7) k/uL Sodium 136 L (137-145) mmol/L Glucose 100 H (74-99) mg/dL Assessment and Plan Assessment: Acute gangrenous cholecystitis with the gallstone and the neck of the gallbladder. Status post cholecystectomy postoperative day 1 leukocytosis secondary to above. Hypertension uncontrolled Hyperlipidemia COPD not in exacerbation GERD BPH History of nephrolithiasis Chronic back pain History of skin cancer removal. DVT prophylaxis with heparin subcu Previous history of smoking Plan: Patient will be continued on Levaquin and Flagyl. Patient is status post cholecystectomy. Postop day #1 patient is passing gas but denies any bowel movements at this time. Continues to have some mild abdominal discomfort at the surgical site although states he feels better than yesterday. Patient states he will be going home today. Patient does have a nebulizer at home and will continue with duo nebs along with breathing treatments at home. Patient to continue with home medications. White blood count trending down and is 11.6 today. We will continue to follow closely and further recommendations based on the clinical course. Plan is for discharge today.
== END 2019-11-13 14:01 | disposition home or self-care (01) ==
LOC: EC 02:18 → 4SSUR 05:47 → 5NMEDONC 11:34
PROVIDERS: ADMIT Surgery; ATTEND Surgery
DX: K80.10 Calculus of gallbladder with chronic cholecystitis without obstruction (principal); E78.5 Hyperlipidemia, unspecified; I10 Essential (primary) hypertension; J44.9 Chronic obstructive pulmonary disease, unspecified; K21.9 Gastro-esophageal reflux disease without esophagitis; N40.0 Benign prostatic hyperplasia without lower urinary tract symptoms; G89.29 Other chronic pain; M54.5 Low back pain; N28.9 Disorder of kidney and ureter, unspecified; H61.22 Impacted cerumen, left ear; Z85.828 Personal history of other malignant neoplasm of skin; Z87.442 Personal history of urinary calculi; Z88.0 Allergy status to penicillin; Z79.2 Long term (current) use of antibiotics; Z79.51 Long term (current) use of inhaled steroids; Z79.891 Long term (current) use of opiate analgesic; Z79.82 Long term (current) use of aspirin; Z79.899 Other long term (current) drug therapy; Z82.49 Family history of ischemic heart disease and other diseases of the circulatory system; Z87.11 Personal history of peptic ulcer disease; Z87.891 Personal history of nicotine dependence
CPT/HCPCS: 47562; 96376 ×2; 96374; 96375; 99285; 36415; 94640 ×2; 93005; 88304; 80053 ×2; 80048; 83690; 85025 ×3; 81001; 76705; 74177; G0378 ×4; J2270; J1644 ×3; J1100; J2710; J2405 ×2; J1956 ×2; J2001; J0696; J3010; J1885; J0330; J2704; C9113 ×3; J1170 ×3; Q9967

== ENCOUNTER → 2019-11-24 | Outpatient (CLI) | payer MEDICARE ==
--- NOTE | 2019-11-24 11:54 | US ---
EXAMINATION TYPE: US venous doppler duplex LE LT DATE OF EXAM: 11/24/2019 11:32 AM COMPARISON: NONE CLINICAL HISTORY: M79.605 Left Leg pain. Pain SIDE PERFORMED: Left TECHNIQUE: The lower extremity deep venous system is examined utilizing real time linear array sonog jia with graded compression, doppler sonography and color-flow sonography. VESSELS IMAGED: External Iliac Vein (EIV) Common Femoral Vein Deep Femoral Vein Greater Saphenous Vein * Femoral Vein Popliteal Vein Small Saphenous Vein * Proximal Calf Veins (* superficial vessels) Grayscale, color doppler, spectral doppler imaging performed of the deep veins of the left lower extr emity. There is normal flow, compressibility, vascular waveforms. Left Leg: Negative for DVT IMPRESSION: No sonographic evidence of deep venous thrombosis within the left lower extremity.
== END | disposition home or self-care (01) ==
LOC: RADUSWWP 11:13
PROVIDERS: ATTEND Internal Medicine
DX: M79.605 Pain in left leg (principal)

== ENCOUNTER → 2020-04-22 | Outpatient (CLI) | payer MEDICARE ==
[2020-04-22 11:09] LABS: HCT 49.9 % (39.0-53.0); HGB 16.4 gm/dL (13.0-17.5); MCH 32.8 pg (25.0-35.0); MCHC 32.9 g/dL (31.0-37.0); MCV 99.5 fL (80.0-100.0); Mean Platelet Volume 6.5; Platelet Count 208 k/uL (150-450); RBC 5.02 m/uL (4.30-5.90); RDW 12.7 % (11.5-15.5); WBC 9.1 k/uL (3.8-10.6)
[2020-04-22 11:23] LABS: Calcium 9.1 mg/dL (8.4-10.2); Potassium 4.2 mmol/L (3.5-5.1); Total Bilirubin 0.8 mg/dL (0.2-1.3); Total Protein 7.1 g/dL (6.3-8.2)
[2020-04-22 11:24] LABS: Partial Thromboplastin Time 23.7 sec (22.0-30.0); Prothrombin Time 10.8 sec (9.0-12.0)
[2020-04-22 11:30] LABS: Appearance,Urine Clear (Clear); Bilirubin,Urine Negative (Negative); Blood,Urine Negative (Negative); Color,Urine Yellow; Glucose,Urine (UA) Negative (Negative); Ketones,Urine Negative (Negative); Leukocyte Esterase,Urine Negative (Negative); Nitrite,Urine Negative (Negative); PH, Urine 7.5 (5.0-8.0); Protein,Urine Negative (Negative); Specific Gravity,Urine 1.021 (1.001-1.035); Urobilinogen,Urine <2.0 mg/dL (<2.0)
== END | disposition home or self-care (01) ==
LOC: LABWHC1 10:07
PROVIDERS: ATTEND Orthopaedic Surgery
DX: Z01.818 Encounter for other preprocedural examination (principal); M17.11 Unilateral primary osteoarthritis, right knee; Z01.812 Encounter for preprocedural laboratory examination
CPT/HCPCS: 80053; 81003; 85027; 85610; 85730; 87070; 93005

== ENCOUNTER → 2020-04-30 | Day surgery (SDC) | payer MEDICARE ==
[2020-04-23 10:59] VITALS: BMI 34.4
[~2020-04-30] MED LIST: ACETAMINOPHEN TAB 500 MG TAB PO ONE; DEXAMETHASONE SOD PHOSPHATE 10 MG/ML 1 ML VIAL IV ONE; HYDROmorphone 0.5 MG/0.5 ML SYRINGE IVP PRN; LACTATED RINGERS 1,000 ML IV SCH; LIDOCAINE 1% (10MG/ML) FOR IV START INTRADERMA PRN; MELOXICAM 7.5 MG TAB PO ONE; MIDAZOLAM 2 MG/2 ML VIAL IV PRN; ONDANSETRON 4 MG/2 ML VIAL IVP ONE; ROPIVACAINE 246.25 MG, EPINEPHrine 0.5 MG, KETOROLAC 30 MG, cloNIDine HCL/PF 80 MCG, WA... MISCELLANE ONE; TRANEXAMIC ACID 1,000 MG in SODIUM CHLORIDE 0.9% 100 ML IVPB ONE; fentaNYL (PF) 50 MCG/ML 2 ML AMP IVP PRN
[2020-04-30 11:30] VITALS: BP 134/73; PULSE 64; RESP 18; TEMP 97.7
== END ==
LOC: OR 10:42
PROVIDERS: ATTEND Orthopaedic Surgery
DX: M17.11 Unilateral primary osteoarthritis, right knee (principal); M71.21 Synovial cyst of popliteal space [Baker], right knee; M87.851 Other osteonecrosis, right femur; I10 Essential (primary) hypertension; E78.00 Pure hypercholesterolemia, unspecified; J44.9 Chronic obstructive pulmonary disease, unspecified; E78.5 Hyperlipidemia, unspecified; N40.0 Benign prostatic hyperplasia without lower urinary tract symptoms; Z87.11 Personal history of peptic ulcer disease; Z97.3 Presence of spectacles and contact lenses; Z98.890 Other specified postprocedural states; Z82.49 Family history of ischemic heart disease and other diseases of the circulatory system; Z87.891 Personal history of nicotine dependence; Z79.82 Long term (current) use of aspirin; Z79.51 Long term (current) use of inhaled steroids; Z79.899 Other long term (current) drug therapy; Z88.0 Allergy status to penicillin; Z53.8 Procedure and treatment not carried out for other reasons
CPT/HCPCS: 27599; J1100; J2405

== ENCOUNTER 2020-05-14 12:44 | Day surgery (SDC) | payer MEDICARE ==
[2020-05-11 13:09] VITALS: BMI 34.4
[~2020-05-14 12:44] MED LIST changes: -DEXAMETHASONE SOD PHOSPHATE 10 MG/ML 1 ML VIAL IV ONE; -LACTATED RINGERS 1,000 ML IV SCH; -LIDOCAINE 1% (10MG/ML) FOR IV START INTRADERMA PRN; -ROPIVACAINE 246.25 MG, EPINEPHrine 0.5 MG, KETOROLAC 30 MG, cloNIDine HCL/PF 80 MCG, WA... MISCELLANE ONE; -fentaNYL (PF) 50 MCG/ML 2 ML AMP IVP PRN
[2020-05-14 13:23] VITALS: RESP 16
[2020-05-14] MEDS ORDERED: fentaNYL (PF) 50 MCG/ML 2 ML AMP IVP ONE (13:54)
[2020-05-14] MEDS: LACTATED RINGERS 1,000 ML IV SCH ×2 (13:55→22:58)
[2020-05-14] MEDS ORDERED: ROPIVACAINE 0.2%-NS ON-Q PUMP 1,090 MG, EMPTY PAIN BALL 1 EACH MISCELLANE PRN (14:24)
--- NOTE | 2020-05-14 14:27 | P.ANPRN ---
Procedure Note - Anesthesia - Nerve Block Performed Right Adductor Canal Infusion Time Out Performed: Yes Date of Procedure: 05/14/20 Procedure Start Time: 13:53 Procedure Stop Time: 14:05 Location of Patient: PreOp Indication: Requested by Surgeon (ALTON) Specifically requested for management of pain by DrMark: Kedar Yanez Sedation Type: Sedate with meaningful contact maintained Preparation: Sterile Prep, Sterile Dressing Position: Supine Needle Types: Pajunk Needle Gauge: 18 Ultrasound used to visualize needle placement: Yes Ultrasound used to observe medication spread: Yes Injectate: 0.5% Ropivacaine (see comment for volume) (20 ML) Blood Aspirated: No Pain Paresthesia on Injection Noted: No Resistance on Injection: Normal Image Stored and Saved: Yes Events: Uneventful and Well Tolerated
--- NOTE | 2020-05-14 15:30 | P.HPOR ---
History of Present Illness H&P Date: 05/14/20 Chief Complaint: Right knee pain This is a 74-year-old male seen in our office with continued complaint of right knee pain. He has failed outpatient conservative measures and presents to discuss surgical options. After discussion and consideration the patient elects proceed with total right knee arthroplasty. Past Medical History Past Medical History: Cancer, COPD, GERD/Reflux, Hyperlipidemia, Hypertension, Prostate Disorder, Renal Disease Additional Past Medical History / Comment(s): RASHES TO RLE CLEARED NOW. Skin cancer removed from R cheek, BPH, nephritis, nephrolithiasis, chronic low back pain, gastric ulcer when in his 20s, L ear cerumen build up. History of Any Multi-Drug Resistant Organisms: None Reported Past Surgical History: Heart Catheterization, Hernia Repair Additional Past Surgical History / Comment(s): Skin cancer removal right cheek, bilateral inguinal hernia repairs, colonoscopy. Past Anesthesia/Blood Transfusion Reactions: No Reported Reaction Smoking Status: Former smoker - Past Family History Father Family Medical History: Coronary Artery Disease (CAD) Additional Family Medical History / Comment(s): Father had CABG at the age of 68 yrs. Mother Family Medical History: Congestive Heart Failure (CHF), CVA/TIA Medications and Allergies Home Medications Medication Instructions Recorded Confirmed Type Albuterol Sulfate [Ventolin HFA] 2 puff INHALATION RT-Q6H PRN 11/11/19 05/14/20 History Aspirin 81 mg PO DAILY 11/11/19 05/14/20 History Lisinopril-Hctz 20-25 mg 1 tab PO QAM 11/11/19 05/14/20 History [Zestoretic 20-25] Metoprolol Tartrate [Lopressor] 25 mg PO HS 11/11/19 05/14/20 History Simvastatin [Zocor] 40 mg PO HS 11/11/19 05/14/20 History Tamsulosin HCl [Flomax] 0.4 mg PO DAILY 11/11/19 05/14/20 History Fluticasone/Umeclidin/Vilanter 1 inhalation INHALATION QAM 04/23/20 05/14/20 History [Trelegy Ellipta 100-62.5-25] buPROPion HCL [Zyban] 150 mg PO DAILY 04/23/20 05/14/20 History Allergies Allergy/AdvReac Type Severity Reaction Status Date / Time Penicillins Allergy Unknown Verified 05/14/20 13:23 Childhood Physical Examination This a pleasant 74 shell male in no acute distress. He is alert and oriented 3. Exam of the right lower extremity reveals no erythema or ecchymosis. The patches of eczema and the insect bite have all resolved. There are no open wounds or abrasions. He has motion 0-100 to the right knee. There is a 1+ effusion. There is pain about the medial joint with palpation. Minimal patellofemoral pain. Neurovascular status to the lower extremity is intact. Results X-rays of the right knee revealed [id number] medial compartment arthritis as well as patellofemoral arthritis. No acute fractures identified. Assessment and Plan (1) Primary osteoarthritis of right knee Current Visit: Yes Status: Acute Code(s): M17.11 - UNILATERAL PRIMARY OSTEOARTHRITIS, RIGHT KNEE SNOMED Code(s): 612335969974332 Plan: The clinical and x-ray findings are discussed with the patient. He is scheduled for total right knee arthroplasty. He has been cleared by his primary care physician. He has been seen by Dr. Vizcaino regarding the eczema and cleared for surgery. The procedure has been discussed in detail including the possible risks and outcomes of the surgery. After discussion and consideration the patient elects proceed with total right knee arthroplasty.
[2020-05-14] MEDS ORDERED: diphenhydrAMINE 50 MG/ML 1 ML VIAL ONE (15:32)
[2020-05-14] MEDS ORDERED: SODIUM CHLORIDE 0.9% 100 ML BAG ONE (15:32)
[2020-05-14] MEDS ORDERED: MIDAZOLAM 2 MG/2 ML VIAL ONE (15:32)
[2020-05-14] MEDS ORDERED: fentaNYL (PF) 50 MCG/ML 2 ML AMP ONE (15:32)
[2020-05-14] MEDS ORDERED: TRANEXAMIC ACID 1,000 MG/10 ML VIAL ONE (15:32)
[2020-05-14] MEDS ORDERED: ceFAZolin 3,000 MG in SODIUM CHLORIDE 0.9% IRRIGATIO 3,000 ML IRRIGATION ONE (16:12)
[2020-05-14] MEDS: ROPIVACAINE 246.25 MG, EPINEPHrine 0.5 MG, KETOROLAC 30 MG, cloNIDine HCL/PF 80 MCG, WA... MISCELLANE ONE ×10 (16:22→16:55)
[2020-05-14] MEDS ORDERED: LACTATED RINGERS 1,000 ML IV ONE (16:30)
[2020-05-14] MEDS ORDERED: bisacodyL 10 MG SUPP RECTAL PRN (17:58)
[2020-05-14] MEDS ORDERED: MAGNESIUM HYDROXIDE 2,400 MG/10 ML CUP PO PRN (17:58)
[2020-05-14] MEDS ORDERED: NALOXONE 0.4 MG/ML 1 ML VIAL IV PRN (17:58)
[2020-05-14] MEDS ORDERED: NA PHOS,M-B/NA PHOS,DI-BA 133 ML ENEMA RECTAL PRN (17:58)
[2020-05-14] MEDS ORDERED: HYDROcodone/APAP 7.5-325MG 1 EACH TAB PO PRN (17:58)
[2020-05-14] MEDS ORDERED: hydrOXYzine pamoate 25 MG CAP PO PRN (17:58)
[2020-05-14] MEDS ORDERED: HYDROmorphone 0.5 MG/0.5 ML SYRINGE IVP PRN ×3 (17:58)
[2020-05-14] MEDS ORDERED: HYDROcodone/APAP 5-325MG 1 EACH TAB PO PRN (17:58)
[2020-05-14] MEDS ORDERED: TEMAZEPAM 15 MG CAP PO PRN (17:58)
[2020-05-14] MEDS ORDERED: ONDANSETRON 4 MG/2 ML VIAL IVP PRN (17:58)
--- NOTE | 2020-05-14 18:47 | XR ---
EXAMINATION TYPE: XR knee limited RT DATE OF EXAM: 05/14/2020 COMPARISON: NONE HISTORY: Postop TECHNIQUE: 2 views FINDINGS: There is right knee prosthesis. Components are in anatomic position. IMPRESSION: No complicating process seen.
[2020-05-14] MEDS: ASPIRIN 81 MG PO SCH (20:32)
[2020-05-14] MEDS ORDERED: SENNOSIDES-DOCUSATE SODIUM 1 EACH TAB PO SCH (21:00)
[2020-05-14] MEDS ORDERED: MELATONIN 3 MG TABLET PO SCH (22:45)
[2020-05-15] MEDS: LACTATED RINGERS 1,000 ML IV SCH ×2 (04:45→04:46)
[2020-05-15 06:24] LABS: Basophils % (A) 0 %; Eosinophils % (A) 0 %; HCT 41.2 % (39.0-53.0); HGB 13.6 gm/dL (13.0-17.5); Lymphocytes # (A) 1.6 k/uL (1.0-4.8); Lymphocytes % (A) 11 %; MCH 32.4 pg (25.0-35.0); MCV 98.1 fL (80.0-100.0); Mean Platelet Volume 6.7; Monocytes # (A) 0.9 k/uL (0-1.0); Monocytes % (A) 7 %; Neutrophils % (A) 81 %; Platelet Count 175 k/uL (150-450); RDW 12.9 % (11.5-15.5); WBC 13.7 k/uL (3.8-10.6)
--- NOTE | 2020-05-15 07:09 | P.PN ---
Progress Note - Text Progress Note Date: 05/15/20 Postoperative day # 1 status post total knee arthroplasty, under spinal anesthesia, and adductor canal catheter placed for postoperative analgesia, currently at ropivacaine 0.2% 8 mL per hour and continuous infusion, visual analogue scale is 3/10, patient using oral pain medication for breakthrough pain. Assessment and plan= Acute postoperative pain, adductor canal catheter for pain control, pain is well controlled we'll continue the same management.
[2020-05-15] MEDS: ASPIRIN 81 MG PO SCH (07:49)
[2020-05-15 08:26] VITALS: BP 119/71; PULSE 83; TEMP 97.4
[2020-05-15] MEDS ORDERED: MELOXICAM 7.5 MG TAB PO SCH (09:00)
--- NOTE | 2020-05-15 09:48 | P.DS ---
Providers Expected date of discharge: 05/15/20 Attending physician: Kedar Yanez Consults: 05/14/20 17:58 Consult Physician Routine Consulting Provider: Ramona Ospina Consult Reason/Comments: Medical management Do you want consulting provider notified?: Yes Primary care physician: Joselin Paulson - Discharge Diagnosis(es) (1) Status post right knee replacement Current Visit: Yes Status: Acute (2) Primary osteoarthritis of right knee Current Visit: Yes Status: Acute Hospital Course: This is a pleasant 74-year-old male last seen in our office with complaints of right knee pain. Patient has known history of degenerative arthritis of the right knee and presented to discuss options. After discussion and consideration, patient elected to proceed with a total knee arthroplasty of the right knee. The patient was seen preoperatively and medically cleared for surgery by his primary care physician. The patient was admitted to [facility] and underwent right total knee arthroplasty on 05/14/[address] Yanez. The procedure was performed without complications or sequelae. The patient has done well postoperatively. The patient was seen and evaluated at bedside today and denies any new complaints. Pain is reasonably controlled. Dressing is clean dry and intact. Incision looks fine with no erythema or active drainage. Calf is soft and nontender. The patient has full foot and ankle motion without difficulty. Patient's right lower extremity is neurovascular intact. Patient is orthopedically stable for discharge to home today. Pertinent Studies: Laboratory Tests 05/15/20 05:41 WBC 13.7 H RBC 4.20 L Hgb 13.6 Hct 41.2 Neutrophils # 11.0 H Patient Condition at Discharge: Stable Plan - Discharge Summary Discharge Rx Participant: No New Discharge Prescriptions: New Aspirin [Adult Low Dose Aspirin EC] 81 mg PO BID #1 tablet. Meloxicam [Mobic] 1 - 2 tab PO DAILY PRN #30 tab PRN Reason: Pain HYDROcodone/APAP 7.5-325MG [[place] 7.5-325] 1 - 2 tab PO Q4-6H PRN #50 tab PRN Reason: Pain Sennosides-Docusate Sodium [Senokot-S] 1 tab PO BID #60 tablet hydrOXYzine pamoate [Vistaril] 25 mg PO Q4-6H #30 capsule No Action Tamsulosin HCl [Flomax] 0.4 mg PO DAILY Metoprolol Tartrate [Lopressor] 25 mg PO HS Albuterol Sulfate [Ventolin HFA] 2 puff INHALATION RT-Q6H PRN PRN Reason: Shortness Of Breath Simvastatin [Zocor] 40 mg PO HS Lisinopril-Hctz 20-25 mg [Zestoretic 20-25] 1 tab PO QAM Aspirin 81 mg PO DAILY buPROPion HCL [Zyban] 150 mg PO DAILY Fluticasone/Umeclidin/Vilanter [Trelegy Ellipta 100-62.5-25] 1 inhalation INHALATION QAM Discharge Medication List Albuterol Sulfate [Ventolin HFA] 2 puff INHALATION RT-Q6H PRN 11/11/19 [History] Aspirin 81 mg PO DAILY 11/11/19 [History] Lisinopril-Hctz 20-25 mg [Zestoretic 20-25] 1 tab PO QAM 11/11/19 [History] Metoprolol Tartrate [Lopressor] 25 mg PO HS 11/11/19 [History] Simvastatin [Zocor] 40 mg PO HS 11/11/19 [History] Tamsulosin HCl [Flomax] 0.4 mg PO DAILY 11/11/19 [History] Fluticasone/Umeclidin/Vilanter [Trelegy Ellipta 100-62.5-25] 1 inhalation INHALATION QAM 04/23/20 [History] buPROPion HCL [Zyban] 150 mg PO DAILY 04/23/20 [History] Aspirin [Adult Low Dose Aspirin EC] 81 mg PO BID #1 tablet. 05/14/20 [Rx] HYDROcodone/APAP 7.5-325MG [[place] 7.5-325] 1 - 2 tab PO Q4-6H PRN #50 tab 05/14/20 [Rx] Meloxicam [Mobic] 1 - 2 tab PO DAILY PRN #30 tab 05/14/20 [Rx] Sennosides-Docusate Sodium [Senokot-S] 1 tab PO BID #60 tablet 05/14/20 [Rx] hydrOXYzine pamoate [Vistaril] 25 mg PO Q4-6H #30 capsule 05/14/20 [Rx] Follow up Appointment(s)/Referral(s): Ekaterina Moreno, ZOYA [PHYSICIAN TEXTILE TECHNOLOGIST] - 2 Weeks Activity/Diet/Wound Care/Special Instructions: May bear wt as tolerated w walker. May shower 48h post op. Remove Optifoam dressing 7-10 post op.
--- NOTE | 2020-06-01 12:48 | P.OP ---
Date of Procedure: 05/14/20 Procedure(s) Performed: PREOPERATIVE DIAGNOSIS: Right knee severe osteoarthritis with genu varum POSTOPERATIVE DIAGNOSIS: Right knee severe osteoarthritis with genu varum OPERATION: Right knee cemented total replacement arthroplasty. ANESTHESIA: Spinal ESTIMATED BLOOD LOSS: 100 ml. COMMUNITY DEVELOPMENT MANAGER: Ekaterina Moreno PA-C (assistance with: patient positioning, retraction, exposure, hemostasis, leg positioning, implantation, irrigation, closure, dressing) COMPLICATIONS: None apparent. COMPONENTS IMPLANTED: Journey II BCS total [facility] [employer] [facility] INDICATIONS: Mr. Matos is a 74 year old male with a history of right knee osteoarthritis. The patient's knee is end-stage, and conservative management has failed. The operation of knee replacement has been discussed at length in the office, as well as potential risks and complications. These are inclusive of, but not limited to: bleeding, infection, scarring, discomfort, blood vessel and nerve damage, need for further surgery, failure to relieve symptoms, persistence, recurrence, or worsening of problems, loosening, dislocation, wear, blood clot, pulmonary embolism, , gait dysfunction, stiffness, and other risks as discussed in the office. The patient elects to proceed and the consent form has been signed. PROCEDURE: The patient was taken to the operating room and positioned on the operating room table in the supine position. Anesthesia was initiated. Care was taken to make sure that all pressure points were adequately padded. The operative lower extremity was prepped and draped in the usual aseptic fashion using ChloraPrep. Ioban drape was used for the case and the patient received intravenous antibiotics within one hour of the incision. A pneumotourniquet and leg galicia were used for the case. The limb was exsanguinated with an Esmarch bandage and the tourniquet was inflated to 350 mmHg. Time-out was called confirming the patient's identity, side, procedure and administration of antibiotics and tranexamic acid. The incision was then created midline directly over the right knee, carried down through skin and into the subcutaneous tissues and down to fascia. Full thickness subcutaneous medial flap was developed. Medial parapatellar arthrotomy was performed and the interior of the knee was inspected. There was end-stage osteoarthritis of the knee with a mild to moderate genu valgum type deformity. The fat pad was excised and proximal medial release on the tibia was completed using meticulous dissection and a curved osteotome. The anterior cruciate ligament was taken down. Note was made of significant attrition of the anterior and significant degenerative appearance of the cruciate ligaments. The exposure was excellent. The knee was flexed 90 degrees and the patella was everted. The [employer] pre- made distal cutting block was attached and pinned into position. The planned cut was analyzed visually and with the alignment pily and found to be satisfactory without the need for any adjustment. The oscillating saw was then used to make the distal femoral cut and make the alignment holes for the 5 in 1 block. This cut was confirmed to be flat with the flat end of an osteotome. The 5 in 1 block was then used to create the anterior posterior condylar resections and the chamfer cuts. The retractors were placed around the tibia and the tibial surface was addressed. The [employer] pre-made guide was placed onto the exposed tibial surface and pinned into position to latoya the rotational alignment. The alignment of the guide was checked for depth of plannned resection, slope, and varus valgus. Guide was confirmed to be in good position and the tibial cut was then created with protection of the posterior neurovascular structures and the collateral ligaments. The tibial cut surface was removed and sized. Spacer block technique was then used to confirm that the flexion and extension gaps were equal. Soft tissue releases and adjustment of the tibial and/or femoral cuts were made, as necessary, until the gaps were equal. This included release of the posterior cruciate ligament, which was excessively tight in this patient. Prior to placing trial components, anesthetic solution consisting of ropivicaine with epinephrine, ketorolac, and clonidine was injected carefully and methodically in a grid pattern using aspiration technique into the soft tissue around the knee circumferentially, starting with the deeper tissues first and progressing to fascia, and then finally the skin/subcutaneous tissue. Particular care was taken when injecting the posterior capsule, with avoidance of the midline posterior area. The trial components were inserted. The tibial tray was allowed to self center and the patella was noted to track very well. The position of the tibial component was marked and noted to be nearly exactly aligned with the pre-drilled holes from the [employer] guide. The tibia was then finished for a stemmed tibial component. Patellar resurfacing was performed using a reamer. The size of the required patellar component was estimated and the patellar surface was then reamed down to a residual thickness which would recreate the [place] thickness with the component. The exact placement of the patellar component was adjusted for po sition based on preoperative x-rays and intraoperative findings. Trial components were removed and the cut surfaces of the bone were pulse lavaged thoroughly and dried. Cement was mixed on the back table and applied to the final components. Cement was then applied to the tibial surface and pressurized into the surface using finger pressurization technique. The tibial component was then applied and excess cement was removed after it was impacted securely and noted to be flush with the cut surface. In similar fashion, the cement was applied to the cut femoral surface, pressurized in using finger pressurization and the component was impacted into place. Excess cement was removed. The polyethylene spacer was then implanted and locked into position. The patellar component was then applied in similar technique and a patellar clamp was used to hold the patella in place as the cement hardened. Once the cement had fully hardened, the knee was reinspected. Any other cement extrusion was removed and final kinematic testing showed range of motion from 0 to 130 degrees with excellent stability, both medially and laterally and appropriate alignment of the leg. Patellar tracking was excellent. The knee was then thoroughly pulse lavaged with normal saline. The tourniquet was deflated and hemostasis was obtained with electrocautery and IV tranexamic acid, 1 g given at the start of the operation and 1 g at the start of closure. Closure was with #2 Ethibond in the fascia/capsule and supplemented with #2 Quill, 2-0 Vicryl suture was used for the subcutaneous tissues and 3-0 Quill for the skin. Dermabond/Steri-Strips were then applied. A lightly compressive dressing was applied using Webril and an Chung wrap. The patient was then transferred to stretcher and taken to the recovery room in stable condition. Sponge and needle counts were correct.
== END 2020-05-15 12:57 | disposition home or self-care (01) ==
LOC: OR 12:44 → 4SSUR 18:07 → OR 05-15 12:57
PROVIDERS: ATTEND Orthopaedic Surgery
DX: M17.11 Unilateral primary osteoarthritis, right knee (principal); M21.161 Varus deformity, not elsewhere classified, right knee; M71.21 Synovial cyst of popliteal space [Baker], right knee; M87.851 Other osteonecrosis, right femur; J44.9 Chronic obstructive pulmonary disease, unspecified; K21.9 Gastro-esophageal reflux disease without esophagitis; E78.5 Hyperlipidemia, unspecified; I10 Essential (primary) hypertension; N40.0 Benign prostatic hyperplasia without lower urinary tract symptoms; N20.0 Calculus of kidney; Z85.828 Personal history of other malignant neoplasm of skin; G89.29 Other chronic pain; M54.5 Low back pain; Z87.11 Personal history of peptic ulcer disease; Z98.890 Other specified postprocedural states; Z87.891 Personal history of nicotine dependence; Z97.3 Presence of spectacles and contact lenses; Z82.49 Family history of ischemic heart disease and other diseases of the circulatory system; Z82.3 Family history of stroke; Z79.82 Long term (current) use of aspirin; Z79.51 Long term (current) use of inhaled steroids; Z79.899 Other long term (current) drug therapy; Z79.891 Long term (current) use of opiate analgesic; Z79.1 Long term (current) use of non-steroidal anti-inflammatories (NSAID); Z88.0 Allergy status to penicillin
CPT/HCPCS: 64448; 76942; 85025; 88300; 73560; 27447; C1713 ×2; J2250; J0171; J1200; J0690 ×3; J2405; J3010; J1885; J2795 ×2; J0735

== ENCOUNTER → 2020-07-14 | Outpatient (CLI) | payer MEDICARE ==
--- NOTE | 2020-07-14 18:05 | XR ---
Sternum, chest x-ray with bilateral RIBS HISTORY: Trauma and pain Bilateral RIBS and chest x-ray on 9 images, Sternaman 3 images submitted Correlation to chest x-ray 05/07/2019 There is no evidence depressed sternal fracture. Oblique images of the sternum somewhat limited for e valuation. There is no evident displaced rib fracture. Thoracic spondylosis is present. Chest x-ray shows no acu te cardiopulmonary disease. Heart size is within normal limits. No evident airspace disease, pneumoth orax, or pleural effusion. IMPRESSION: No acute abnormality. Bone scan could be performed for increased sensitivity as indicated .
== END | disposition home or self-care (01) ==
LOC: RADXRYALE 12:03
PROVIDERS: ATTEND Internal Medicine
DX: S20.211A Contusion of right front wall of thorax, initial encounter (principal)
CPT/HCPCS: 71111; 71120

== ENCOUNTER 2024-12-11 10:34 | Day surgery (SDC) | payer MEDICARE ==
[~2024-12-11 10:34] MED LIST changes: -ACETAMINOPHEN TAB 500 MG TAB PO ONE; +ALPRAZolam 0.25 MG TAB PO PRN; +ALPRAZolam 0.5 MG TAB PO PRN; -HYDROmorphone 0.5 MG/0.5 ML SYRINGE IVP PRN; -MELOXICAM 7.5 MG TAB PO ONE; -MIDAZOLAM 2 MG/2 ML VIAL IV PRN; +NITROGLYCERIN SL TABS 0.4 MG TAB SUBLINGUAL PRN; -ONDANSETRON 4 MG/2 ML VIAL IVP ONE; -TRANEXAMIC ACID 1,000 MG in SODIUM CHLORIDE 0.9% 100 ML IVPB ONE
[2024-12-11] MEDS: SODIUM CHLORIDE 0.9% 1,000 ML in EMPTY BAG 1 BAG IV SCH (10:48)
[2024-12-11] MEDS: ASPIRIN 325 MG TAB PO STA (10:48)
[2024-12-11] MEDS: IV FLUID CONTINUATION 1,000 ML IV ONE (10:57)
[2024-12-11 11:02] VITALS: RESP 16; TEMP 98.1
[2024-12-11] MEDS: HEPARIN SODIUM,PORCINE (1 ML) 2,500 UNIT in SODIUM CHLORIDE 0.9% 250 ML IRRIGATION PRN (12:15)
[2024-12-11] MEDS: HEPARIN SODIUM,PORCINE 10,000 UNIT in SODIUM CHLORIDE 0.9% 1,000 ML IRRIGATION PRN (12:15)
[2024-12-11] MEDS: fentaNYL (PF) 50 MCG/ML 2 ML AMP IVP ONE (12:25)
[2024-12-11] MEDS: MIDAZOLAM 2 MG/2 ML VIAL IVP ONE (12:25)
[2024-12-11] MEDS: LIDOCAINE 1% INJ 10MG/ML (20 ML MDV) SQ ONE (12:27)
[2024-12-11] MEDS: VERAPAMIL SYRINGE (5 MG/10 ML) INTRAARTER ONE (12:29)
[2024-12-11] MEDS: HEPARIN SODIUM 1,000 UN/ML (10ML VL) IV ONE (12:31)
[2024-12-11] MEDS: IOPAMIDOL-370 100ML BTL INJ ONE (12:36)
--- NOTE | 2024-12-11 12:47 | P.CARDCATH ---
Description of Procedure: PROCEDURES PERFORMED: Left heart catheterization, bilateral coronary angiography, ultrasound guided arterial access INDICATION: Abnormal stress test CONSENT:I have discussed the risks, benefits and alternative therapies for the above-mentioned procedure and for both sedation/analgesia as well as necessary blood product administration, if indicated, as they pertain to this patient. The patient has indicated understanding and acceptance of the risks and procedures discussed. PROCEDURE: After the risks, benefits and alternatives of the above mentioned procedure explained in detail with the patient, informed consent was obtained. Patient was taken to the catheterization lab and prepped and draped in usual fashion. Ultrasound guidance was used to assess for arterial access. 1% lidocaine was used to anesthetize the right radial artery. A 6-Jordanian sheath was placed in the right radial artery using modified Seldinger technique and ultrasound guidance. Left coronary angiography was performed with a 5-Jordanian JL 3.5 catheter and right coronary angiography was performed with a 5-[place]ian FR5 catheter in various views. A 5-[place]ian FR5 catheter was inserted into the left ventricle and pressure measurements were obtained. The right radial sheath was removed and a TR band was placed with hemostasis achieved. The patient to lerated the procedure well. Patient was transported back to the post catheterization holding area in stable condition. Conscious Sedation: Patient was monitored under the direct supervision of myself for conscious sedation using Versed and fentanyl for a total duration of 9 minutes HEMODYNAMICS: Aorta: 155/82 LV: 141/8, LVEDP 18 SELECTIVE CORONARY ARTERIOGRAPHY: LEFT MAIN: The left main is a large caliber vessel which bifurcates into the LAD and circumflex. There is no significant stenosis. LEFT ANTERIOR DESCENDING CORONARY ARTERY: LAD is a large caliber vessel which wraps around to the apex. There are mild luminal irregularities. There is a near dual LAD with moderate caliber diagonal 2 branch. LEFT CIRCUMFLEX CORONARY ARTERY: Left circumflex is a moderate caliber vessel with luminal irregularities, 10%. RIGHT CORONARY ARTERY: The right coronary artery is a large caliber vessel which gives off a PDA and PLV branch and is the dominant vessel. There are mild luminal irregularities FINAL IMPRESSION: 1. Relatively normal coronary arteries with only mild luminal irregularities 2. Mildly elevated left sided filling pressures PLAN: 1. Aggressive risk factor modification per most recent ACC/AHA guidelines. 2. Follow-up in the office in 1-2 weeks.
[2024-12-11 15:57] VITALS: BP 122/65; PULSE 65
== END 2024-12-11 16:05 | disposition home or self-care (01) ==
LOC: CATHCVL 10:34
PROVIDERS: ATTEND Internal Medicine
DX: R94.39 Abnormal result of other cardiovascular function study (principal); I12.9 Hypertensive chronic kidney disease with stage 1 through stage 4 chronic kidney disease, or unspecified chronic kidney disease; N18.9 Chronic kidney disease, unspecified; E78.00 Pure hypercholesterolemia, unspecified; J44.9 Chronic obstructive pulmonary disease, unspecified; R07.9 Chest pain, unspecified; R06.00 Dyspnea, unspecified; R42 Dizziness and giddiness; R05.9 Cough, unspecified; Z79.82 Long term (current) use of aspirin; Z79.51 Long term (current) use of inhaled steroids; Z79.899 Other long term (current) drug therapy; Z87.891 Personal history of nicotine dependence; Z82.49 Family history of ischemic heart disease and other diseases of the circulatory system; Z88.0 Allergy status to penicillin
CPT/HCPCS: 93458; C1894; J2250; J1644 ×3; J2003; J3010; Q9967